=== PATIENT | female | born 1975 | race Caucasian/White ===

== ENCOUNTER → 2017-08-09 | Outpatient (CLI) | payer BC, OTHER ==
[~2017-08-09] VITALS: Ht 167.6 cm; Wt 70.3 kg
[2017-08-09 11:01] VITALS: BP 121/80
[2017-08-09 11:40] VITALS: BP 118/78
--- NOTE | 2017-08-09 12:49 | Diagnostic Imaging Report ---
INDICATION: Right parotid mass. FINDINGS: Sonographic guidance was provided for Dr. Turcios for a right parotid mass fine-needle aspiration. IMPRESSION: Sonography for a right parotid mass FNA. Dictated by: Dictated on workstation # [id number]
== END ==
LOC: RAD 10:16
PROVIDERS: ATTEND Otolaryngology Otolaryngology/Facial Plastic Surgery
DX: K11.8 Other diseases of salivary glands (principal)
CPT/HCPCS: 76942

== ENCOUNTER → 2023-04-19 | Outpatient (CLI) | payer BC ==
[~2023-04-19] MED LIST: CATHETER FLUSH 10 ML SYR IVP PRN
--- NOTE | 2023-04-19 12:23 | Diagnostic Imaging Report ---
INDICATION: Right upper quadrant pain. TECHNIQUE: Patient was administered 5.4 mCi technetium-99m Choletec intravenously, and imaging over the abdomen was performed. At 45 minutes, patient ingested 8 ounces of Ensure, and the gallbladder ejection fraction was calculated. FINDINGS: There is homogeneous uptake of activity by the liver with prompt excretion of activity into the gallbladder and common duct. There is normal passage of activity into the small bowel. Gallbladder ejection fraction is normal at 72%. IMPRESSION: Normal HIDA scan and gallbladder ejection fraction. Dictated by: Dictated on workstation # [id number]
== END ==
LOC: CARD 08:29
PROVIDERS: ATTEND Nurse Practitioner Family
DX: R10.11 Right upper quadrant pain (principal)
CPT/HCPCS: 78227; A9537